=== PATIENT | male | born 1965 | race Caucasian/White ===

== ENCOUNTER 2017-08-29 06:45 | Day surgery (SDC) | payer MEDICARE ==
[2017-08-26 12:42] VITALS: BMI 48.0
[~2017-08-29 06:45] MED LIST: HEPARIN SODIUM,PORCINE 5,000 UNIT/ML 1 ML VIAL SQ ONE; LACTATED RINGERS 1,000 ML IV SCH; Pre Op ABX Message 1 EACH MISC MISCELLANE ONE
[2017-08-29] MEDS ORDERED: LIDOCAINE 1% 20 ML VIAL (10MG/ML) FOR IV START INTRADERMA ONE (07:15)
[2017-08-29 07:18] LABS: Glucose,Whole Blood 109 mg/dL (75-99)
--- NOTE | 2017-08-29 07:50 | P.GSHP ---
History of Present Illness H&P Date: 08/29/17 Chief Complaint: Left cervical lymphadenopathy Asst. 51-year-old male who presents today for excision of left posterior cervical lymph node. Patient states he has had this a large lymph node for several months. His recent CAT scan shows several large cervical lymph nodes. Past Medical History Past Medical History: Diabetes Mellitus, Pneumonia Additional Past Medical History / Comment(s): LT CERVICAL LYMPH NODE ENLARGED. History of Any Multi-Drug Resistant Organisms: None Reported Past Surgical History: Orthopedic Surgery Additional Past Surgical History / Comment(s): LUNG PROC TO CLEAN OUT INFECTION. BONE CHIP EXC RT KNEE. Past Anesthesia/Blood Transfusion Reactions: Motion Sickness Smoking Status: Never smoker - Past Family History Mother Family Medical History: Cancer Medications and Allergies Home Medications Medication Instructions Recorded Confirmed Type Amitriptyline HCl [Elavil] 10 mg PO HS 08/26/17 08/29/17 History Citalopram Hydrobromide 40 mg PO DAILY 08/26/17 08/29/17 History [Citalopram HBr] metFORMIN HCL [Glucophage Xr] 500 mg PO DAILY 08/26/17 08/29/17 History Allergies Allergy/AdvReac Type Severity Reaction Status Date / Time No Known Allergies Allergy Verified 08/26/17 12:20 Surgical - Exam Vital Signs Temp Pulse Resp BP Pulse Ox 99.1 F 85 18 124/77 95 08/29/17 07:03 08/29/17 07:03 08/29/17 07:03 08/29/17 07:03 08/29/17 07:03 - General well developed, no distress - Eyes PERRL - ENT normal pinna - Neck 2 cm posterior cervical lymph node. The lymph node is firm and nontender. no masses - Respiratory normal expansion - Cardiovascular Rhythm: regular - Abdomen Abdomen: soft, non tender Results - Labs Abnormal Lab Results - Last 24 Hours (Table) 08/29/17 Range/Units 07:11 POC Glucose (mg/dL) 109 H (75-99) mg/dL Assessment and Plan Assessment: Left cervical lymphadenopathy. We'll perform excisional biopsy. Patient aware the risk of possible nerve injury and paresthesias related to lymph node biopsy.
[2017-08-29] MEDS ORDERED: SUCCINYLCHOLINE CHLORIDE VIAL 200 MG/10 ML VIAL IV ONE (07:56)
[2017-08-29] MEDS ORDERED: KETOROLAC 30 MG/ML 1 ML VIAL ONE (07:56)
[2017-08-29] MEDS ORDERED: MIDAZOLAM 2 MG/2 ML VIAL ONE (07:56)
[2017-08-29] MEDS ORDERED: ONDANSETRON 4 MG/2 ML VIAL ONE (07:56)
[2017-08-29] MEDS ORDERED: fentaNYL (PF) 50 MCG/ML 2 ML AMP ONE (07:56)
[2017-08-29] MEDS ORDERED: PROPOFOL 10 MG/ML 20 ML VIAL IV ONE (07:56)
[2017-08-29] MEDS ORDERED: SODIUM CHLORIDE 0.9% 50 ML with ceFAZolin 2,000 MG IV ONE ×2 (08:23)
[2017-08-29] MEDS ORDERED: BUPIVACAINE (PF) 0.25% 30 ML VIAL SQ ONE (08:23)
[2017-08-29 08:57] VITALS: TEMP 97.9
[2017-08-29 09:58] VITALS: BP 109/66; PULSE 76; RESP 16
--- NOTE | 2017-09-05 12:48 | P.OP ---
Date of Procedure: 08/29/17 Preoperative Diagnosis: Left posterior cervical lymph node Postoperative Diagnosis: Posterior cervical lymph node Procedure(s) Performed: Excision of left posterior cervical lymph node Anesthesia: STACEY Surgeon: Javy Mcmahon Estimated Blood Loss (ml): 5 Pathology: other (Left posterior cervical lymph node) Condition: stable Disposition: PACU Description of Procedure: A shunt placed the operative table in the supine position. He received general anesthesia. His neck was prepped and draped usual fashion. The skin incision site was anesthetized 1% local Xylocaine. The skin was incised in the posterior cervical area. Using blunt and sharp dissection with cautery the lymph node was dissected. The Harmonic scissors were used to dissect lymph nodes well. The Bovie hemostasis. The scope specimens of pathology. The skin was closed interrupted 3-0 Monocryl suture. Dermabond was applied. Patient top she will was sent to recovery in stable condition.
== END 2017-08-29 10:09 | disposition home or self-care (01) ==
LOC: OR 06:45
PROVIDERS: ATTEND Surgery
DX: R59.0 Localized enlarged lymph nodes (principal); E11.9 Type 2 diabetes mellitus without complications; E66.01 Morbid (severe) obesity due to excess calories; Z68.42 Body mass index [BMI] 45.0-49.9, adult; M54.5 Low back pain; Z79.84 Long term (current) use of oral hypoglycemic drugs; Z79.899 Other long term (current) drug therapy
CPT/HCPCS: 88305; 88331; 38510; J2250; J0330; J1644; J2405; J3010; J1885; J0690; J2704

== ENCOUNTER 2017-09-10 06:55 | Day surgery (SDC) | payer MEDICARE ==
[2017-09-06 10:59] VITALS: BMI 47.3
[~2017-09-10 06:55] MED LIST changes: -HEPARIN SODIUM,PORCINE 5,000 UNIT/ML 1 ML VIAL SQ ONE; +LIDOCAINE 1% 20 ML VIAL (10MG/ML) FOR IV START INTRADERMA PRN; -Pre Op ABX Message 1 EACH MISC MISCELLANE ONE
[2017-09-10] MEDS ORDERED: LACTATED RINGERS 1,000 ML IV ONE (07:07)
[2017-09-10 07:15] VITALS: TEMP 98.6
[2017-09-10 07:18] LABS: Glucose,Whole Blood 122 mg/dL (75-99)
[2017-09-10] MEDS ORDERED: LIDOCAINE 1% INJ 10MG/ML (20 ML MDV) ONE (07:45)
[2017-09-10] MEDS ORDERED: PROPOFOL 10 MG/ML 20 ML VIAL IV ONE (07:45)
--- NOTE | 2017-09-10 07:57 | P.GSHP ---
History of Present Illness H&P Date: 09/10/17 Chief Complaint: Screening colonoscopy This is a 52-year-old male presents today for screening colonoscopy Past Medical History Past Medical History: Diabetes Mellitus, Pneumonia Additional Past Medical History / Comment(s): LT CERVICAL LYMPH NODE ENLARGED. fell 2007 and injured lower back, spinal stenosis History of Any Multi-Drug Resistant Organisms: None Reported Past Surgical History: Orthopedic Surgery Additional Past Surgical History / Comment(s): LUNG PROC TO CLEAN OUT INFECTION. BONE CHIP REMOVED FROM RT KNEE, LT CERVICAL LYMPH NODE removed Past Anesthesia/Blood Transfusion Reactions: Motion Sickness Past Psychological History: Depression Smoking Status: Never smoker Past Alcohol Use History: Rare Past Drug Use History: None Reported - Past Family History Mother Family Medical History: Cancer Medications and Allergies Home Medications Medication Instructions Recorded Confirmed Type Citalopram Hydrobromide 40 mg PO DAILY 08/26/17 09/10/17 History [Citalopram HBr] metFORMIN HCL [Glucophage Xr] 500 mg PO DAILY 08/26/17 09/10/17 History Gabapentin [Neurontin] 300 mg PO TID 09/06/17 09/10/17 History Allergies Allergy/AdvReac Type Severity Reaction Status Date / Time No Known Allergies Allergy Verified 09/10/17 07:22 Surgical - Exam Vital Signs Temp Pulse Resp BP Pulse Ox 98.6 F 85 14 175/70 95 09/10/17 07:14 09/10/17 07:14 09/10/17 07:14 09/10/17 07:14 09/10/17 07:14 - General well developed, no distress - Eyes PERRL - ENT normal pinna - Neck no masses - Respiratory normal expansion - Cardiovascular Rhythm: regular - Abdomen Abdomen: soft, non tender Results - Labs Abnormal Lab Results - Last 24 Hours (Table) 09/10/17 Range/Units 07:16 POC Glucose (mg/dL) 122 H (75-99) mg/dL Assessment and Plan Assessment: We will perform screening colonoscopy
--- NOTE | 2017-09-10 08:06 | P.OP ---
Date of Procedure: 09/10/17 Preoperative Diagnosis: Screening colonoscopy Postoperative Diagnosis: Normal colonoscopy Procedure(s) Performed: Colonoscopy Anesthesia: MAC Surgeon: Javy Mcmahon Pathology: none sent Condition: stable Disposition: PACU Description of Procedure: PROCEDURE: The patient was placed on the endoscopy table in the lateral position. Digital rectal examination was performed which revealed no abnormalities. The prostate was symmetrical without nodules. Flexible colonoscope was then placed in the patient's anus and passed throughout the entire colon. The ileocecal valve was visualized. The cecum, ascending, transverse, descending and sigmoid colon were normal. The rectum was normal as well. There were no masses, polyps or diverticula noted in the entire colon. SUMMARY OF FINDINGS: Normal colonoscopy.
[2017-09-10 08:28] VITALS: BP 119/74; PULSE 69; RESP 18
== END 2017-09-10 08:36 | disposition home or self-care (01) ==
LOC: ORWHC2ENDO 06:55
PROVIDERS: ATTEND Surgery
DX: Z12.11 Encounter for screening for malignant neoplasm of colon (principal); R19.4 Change in bowel habit; E11.9 Type 2 diabetes mellitus without complications; F32.9 Major depressive disorder, single episode, unspecified; Z79.84 Long term (current) use of oral hypoglycemic drugs; Z79.899 Other long term (current) drug therapy
CPT/HCPCS: J2001; J2704; G0121

== ENCOUNTER 2020-08-19 11:11 | Emergency (ER) | payer MEDICARE, OTHER ==
--- NOTE | 2020-08-19 11:58 | US ---
EXAMINATION TYPE: US venous doppler duplex LE RT DATE OF EXAM: 08/19/2020 11:21 AM COMPARISON: NONE CLINICAL HISTORY: calf pain, hx JJ vaccine. Rt calf pain SIDE PERFORMED: Right TECHNIQUE: The lower extremity deep venous system is examined utilizing real time linear array sonog tommy with graded compression, doppler sonography and color-flow sonography. VESSELS IMAGED: Common Femoral Vein Deep Femoral Vein Greater Saphenous Vein * Femoral Vein Popliteal Vein Small Saphenous Vein * Proximal Calf Veins (* superficial vessels) There is normal flow, compressibility, vascular waveforms. Right Leg: Negative for DVT IMPRESSION: No evident deep venous arthrosis at or above the right knee
--- NOTE | 2020-08-19 12:13 | ED ---
Extremity Problem HPI - General Chief complaint: Extremity Problem,Nontraumatic Stated complaint: R LEG CALF PAIN Time Seen by Provider: 08/19/20 11:20 Source: patient Mode of arrival: ambulatory Limitations: no limitations - History of Present Illness Initial comments: 54-year-old male presenting today for chief complaint of right calf pain. Patient denies any falls or injury but he states that he has had right calf pain for the past few days. Patient states it feels slightly swollen and he was concerned because it, Gazelle was concerned about a blood clot. Patient denies any history of blood clots denies any chest pain shortness of breath or pain deep inspiration since it does appear slightly red states is tender to touch. Patient denies fevers chills general malaise. Patient states is chronic fasciculations the right calf which he has been told secondary to spinal stenosis. Patient denies any worsening fasciculations. Patient appears nontoxic in no acute distress upon arrival. Patient states he may have felt a pop yesterday but is not sure. Patient can plantar and dorsiflex his foot without difficulty. He denies any falls or direct trauma. - Related Data Home Medications Medication Instructions Recorded Confirmed Citalopram Hydrobromide 40 mg PO DAILY 08/26/17 09/10/17 [Citalopram HBr] metFORMIN HCL [Glucophage Xr] 500 mg PO DAILY 08/26/17 09/10/17 Gabapentin [Neurontin] 300 mg PO TID 09/06/17 09/10/17 Previous Rx's Medication Instructions Recorded Cephalexin [Keflex] 500 mg PO Q6HR 7 Days #28 cap 08/19/20 Allergies Allergy/AdvReac Type Severity Reaction Status Date / Time No Known Allergies Allergy Verified 08/19/20 11:18 Review of Systems ROS Statement: Those systems with pertinent positive or pertinent negative responses have been documented in the HPI. ROS Other: All systems not noted in ROS Statement are negative. Past Medical History Past Medical History: Pneumonia Additional Past Medical History / Comment(s): LT CERVICAL LYMPH NODE ENLARGED. fell 2006 and injured lower back, spinal stenosis History of Any Multi-Drug Resistant Organisms: None Reported Past Surgical History: Back Surgery, Orthopedic Surgery Additional Past Surgical History / Comment(s): LUNG PROC TO CLEAN OUT INFECTION. BONE CHIP REMOVED FROM RT KNEE, LT CERVICAL LYMPH NODE removed Past Anesthesia/Blood Transfusion Reactions: Motion Sickness Past Psychological History: Depression Smoking Status: Never smoker Past Alcohol Use History: Rare Past Drug Use History: None Reported - Past Family History Mother Family Medical History: Cancer General Exam - General Exam Comments Initial Comments: General: The patient is awake and alert, in no distress Eye: +3 mm pupils are equal, round and reactive to light, extra-ocular movements are intact. No nystagmus. There is normal conjunctiva bilaterally. No signs of icterus. Ears, nose, mouth and throat: There are moist mucous membranes and no oral lesions. Neck: The neck is supple, there is no tenderness or JVD. Cardiovascular: There is a regular rate and rhythm. No murmur, rub or gallop is appreciated. Respiratory: Lungs are clear to auscultation, respirations are non-labored, breath sounds are equal. No wheezes, stridor, rales, or rhonchi. Gastrointestinal: Soft, non-distended, non-tender abdomen without masses or organomegaly noted. There is no rebound or guarding present. Musculoskeletal: Slight redness right calf, slightly warm, no obvious swelling. right calf fasciulations. achillles appears intact. no bruising. can weight bear and ambulate.Normal ROM. Strength 5/5. Sensation intact. Pulses equal bilaterally 2+. Neurological: A&O x 3. CN II-XII intact grossly, There are no obvious motor or sensory deficits. Coordination appears grossly intact. Speech is normal. Skin: Skin is warm and dry and no rashes or lesions are noted. Psychiatric: Cooperative, appropriate mood & affect, normal judgment. Limitations: no limitations Course Vital Signs 08/19/20 08/19/20 11:16 12:29 Temperature 99.1 F 98 F Pulse Rate 105 H 68 Respiratory 22 16 Rate Blood Pressure 168/88 161/78 O2 Sat by Pulse 94 L 98 Oximetry Medical Decision Making - Medical Decision Making 54yo male presenting for cc of right calf pain. possible developing cellulitis, but could be patients baseline difficult to tell. there is soem discoloration of the left leg. pt states hx of pop, but obvious deformities, achilles intact. pt can weight bear and ambulate .US (-) dvt. no hx injury. pt will be discharged on keflex and is to see pcp in 1-2 days. return for worsening symptoms. Disposition Clinical Impression: Right calf pain, Cellulitis Disposition: HOME SELF-CARE Condition: Good Instructions (If sedation given, give patient instructions): Cellulitis (ED) Additional Instructions: Please use medication as discussed. Please follow-up with family doctor in the next 2 days.Please return to emergency room if the symptoms increase or worsen or for any other concerns. Prescriptions: Cephalexin [Keflex] 500 mg PO Q6HR 7 Days #28 cap Is patient prescribed a controlled substance at d/c from ED?: No Referrals: Gio Rosenbaum MD [Primary Care Provider] - 1-2 days Time of Disposition: 12:12
[2020-08-19] MEDS ORDERED: ACET/COD 300 MG/30 MG STARTER PACK 6 TAB BTL PO STA (12:20)
[2020-08-19 12:29] VITALS: BP 161/78; PULSE 68; RESP 16; TEMP 98
== END 2020-08-19 12:29 | disposition home or self-care (01) ==
LOC: EC 11:11
DX: L03.115 Cellulitis of right lower limb (principal); F32.9 Major depressive disorder, single episode, unspecified; Z79.899 Other long term (current) drug therapy
CPT/HCPCS: 99284

== ENCOUNTER → 2021-09-08 | Outpatient (CLI) | payer MEDICARE ==
[2021-09-08 18:53] LABS: Basophils # (A) 0.04 X 10*3/uL (0.00-0.10); Basophils % (A) 0.2 %; Eosinophils # (A) 0.05 X 10*3/uL (0.04-0.35); Eosinophils % (A) 0.3 %; HCT 38.2 % (39.6-50.0); HGB 12.5 g/dL (13.0-17.0); Immature Grans, Automated 1.3 %; Lymphocytes # (A) 2.31 X 10*3/uL (0.90-5.00); Lymphocytes % (A) 13.2 %; MCHC 32.7 g/dL (32.0-37.0); MCV 85.7 fL (80.0-97.0); Mean Platelet Volume 10.9 fL (9.5-12.2); Monocytes # (A) 1.04 X 10*3/uL (0.20-1.00); Monocytes % (A) 5.9 %; NRBC Per 100 WBC 0 /100 WBCS (0.0-0.0); Neutrophils # (A) 13.85 X 10*3/uL (1.80-7.70); Neutrophils % (A) 79.1 %; Platelet Count 233 X 10*3/uL (140-440); RBC 4.46 X 10*6/uL (4.40-5.60); RDW 14.6 % (11.5-14.5); WBC 17.51 X 10*3/uL (4.50-10.00)
[2021-09-08 18:57] LABS: African American GFR (CKD) 96.6 (60.0-200.0); Anion Gap 11.9 mmol/L (10.00-18.00); BUN/Creat Ratio 21.68 Ratio (12.00-20.00); Blood Urea Nitrogen 21.9 mg/dL (9.0-27.0); Calcium 9.2 mg/dL (8.7-10.3); Carbon Dioxide 22.1 mmol/L (20.0-27.5); Non-African American GFR(CKD) 83.4 (60.0-200.0); Potassium 4.4 mmol/L (3.5-5.5)
== END | disposition home or self-care (01) ==
LOC: LABPAT 13:16
PROVIDERS: ATTEND Urology
DX: Z01.812 Encounter for preprocedural laboratory examination (principal); D41.01 Neoplasm of uncertain behavior of right kidney
CPT/HCPCS: 36415; 80048; 85025

== ENCOUNTER → 2021-09-12 | Outpatient (CLI) | payer MEDICARE ==
[2021-09-12 14:25] LABS: Basophils # (A) 0.07 X 10*3/uL (0.00-0.10); Basophils % (A) 0.7 %; Eosinophils # (A) 0.35 X 10*3/uL (0.04-0.35); Eosinophils % (A) 3.6 %; HCT 44.5 % (39.6-50.0); Immature Grans, Automated 1.9 %; Lymphocytes # (A) 1.82 X 10*3/uL (0.90-5.00); MCH 27.3 pg (27.0-32.0); MCHC 31.5 g/dL (32.0-37.0); MCV 86.9 fL (80.0-97.0); Mean Platelet Volume 10.2 fL (9.5-12.2); Monocytes # (A) 0.63 X 10*3/uL (0.20-1.00); Monocytes % (A) 6.6 %; NRBC Per 100 WBC 0 /100 WBCS (0.0-0.0); Neutrophils # (A) 6.55 X 10*3/uL (1.80-7.70); Neutrophils % (A) 68.2 %; Platelet Count 248 X 10*3/uL (140-440); RBC 5.12 X 10*6/uL (4.40-5.60); RDW 14.7 % (11.5-14.5)
[2021-09-12 14:44] LABS: African American GFR (CKD) 97.8 (60.0-200.0); Anion Gap 10.9 mmol/L (10.00-18.00); BUN/Creat Ratio 19.4 Ratio (12.00-20.00); Blood Urea Nitrogen 19.4 mg/dL (9.0-27.0); Calcium 9.4 mg/dL (8.7-10.3); Carbon Dioxide 28.1 mmol/L (20.0-27.5); Non-African American GFR(CKD) 84.4 (60.0-200.0); Potassium 4.6 mmol/L (3.5-5.5)
[2021-09-12 15:26] LABS: Appearance,Urine Clear (Clear); Bilirubin,Urine Negative (Negative); Blood,Urine Negative (Negative); Color,Urine Yellow (Yellow); Ketones,Urine Negative (Negative); Nitrite,Urine Negative (Negative); Specific Gravity,Urine 1.021 (1.001-1.030); Urobilinogen,Urine 0.2 (0.2,1.0)
[2021-09-12 15:33] LABS: Bacteria,Urine None Seen /HPF (None Seen)
== END | disposition home or self-care (01) ==
LOC: LABPAT 10:06
PROVIDERS: ATTEND Urology
DX: Z01.818 Encounter for other preprocedural examination (principal); I10 Essential (primary) hypertension; D41.01 Neoplasm of uncertain behavior of right kidney
CPT/HCPCS: 80048; 81001; 85025; 93005

== ENCOUNTER 2021-09-14 09:26 | Inpatient (IN) | payer MEDICARE ==
--- NOTE | 2021-09-11 16:00 | P.HPIHPCON ---
History of Present Illness H&P Date: 09/11/21 Chief Complaint: Right renal mass This is a 56-year-old male with history of 9.3 cm right-sided renal mass. Discussed with him given the size of the mass and central location is not amenable to nephron sparing surgery. Discussed the mass is highly concerning for renal cell carcinoma. Discussed with him the option of a robotic right radical nephrectomy. Discussed the risk which includes but not limited to bleeding, infection, injury to nearby organs which includes but not limited to the liver, bowel, blood vessels. Discussed with him the tumor is abutting the vena cava and there is a potential of caval injury, which can result in life- threatening bleeding. Discussed also with him risk from anesthesia which includes but not limited to heart attack, stroke, blood clots and even loss of life. Discussed even with surgical removal of the kidney there is potential of cancer recurrence. Discussed risk of incisional hernias. Discussed the potential also of progression to CKD and end-stage renal disease. Discussed the potential short-term and long-term need for hemodialysis. He understood all the risk and agreed to proceed with a robotic right radical nephrectomy l Consent for Procedure: I have explained the operation/procedure to the patient, including the risks, benefits, side effects, alternative therapies (including not receiving the proposed treatment or service), the likelihood of the patient achieving his/her goals, and potential recuperation problems for the procedure/sedation/analgesia, as well as any blood products, if indicated. I also explained to the patient the risks, benefits and side effects of the alternatives, as well as the risks related to not receiving the proposed procedure, care, treatment, or services. Past Medical History Past Medical History: Pneumonia Additional Past Medical History / Comment(s): LT CERVICAL LYMPH NODE ENLARGED. fell 2006 and injured lower back, spinal stenosis History of Any Multi-Drug Resistant Organisms: None Reported Past Surgical History: Back Surgery, Orthopedic Surgery Additional Past Surgical History / Comment(s): LUNG PROC TO CLEAN OUT INFECTION. BONE CHIP REMOVED FROM RT KNEE, LT CERVICAL LYMPH NODE removed Past Anesthesia/Blood Transfusion Reactions: Motion Sickness Past Psychological History: Depression Smoking Status: Never smoker Past Alcohol Use History: Rare Past Drug Use History: None Reported - Past Family History Mother Family Medical History: Cancer Medications and Allergies Home Medications Medication Instructions Recorded Confirmed Type Citalopram Hydrobromide 40 mg PO DAILY 08/26/17 09/10/17 History [Citalopram HBr] metFORMIN HCL [Glucophage Xr] 500 mg PO DAILY 08/26/17 09/10/17 History Gabapentin [Neurontin] 300 mg PO TID 09/06/17 09/10/17 History Cephalexin [Keflex] 500 mg PO Q6HR 7 Days #28 cap 08/19/20 Rx Allergies Allergy/AdvReac Type Severity Reaction Status Date / Time No Known Allergies Allergy Verified 08/19/20 11:18 Surgical - Exam - General no distress, no pain - Eyes normal ocular movement, no pale - ENT normal nares, normal mucosa - Respiratory normal expansion, normal respiratory effort - Abdomen Abdomen: soft, non tender Assessment and Plan Assessment: OR for right-sided robotic radical nephrectomy
[2021-09-12 09:40] VITALS: BMI 45.1
[~2021-09-14 09:26] MED LIST changes: +HEPARIN SODIUM,PORCINE/PF 5,000 UNIT/0.5 ML SYRINGE SQ PRN; -LACTATED RINGERS 1,000 ML IV SCH; -LIDOCAINE 1% 20 ML VIAL (10MG/ML) FOR IV START INTRADERMA PRN; +ceFAZolin 3 GM in SODIUM CHLORIDE 0.9% 100 ML IVPB PRN
[2021-09-14] MEDS ORDERED: ONDANSETRON 4 MG/2 ML VIAL ONE (10:08)
[2021-09-14] MEDS ORDERED: LACTATED RINGERS 1,000 ML IV ONE ×3 (10:20→14:55)
[2021-09-14 10:25] LABS: Glucose,Whole Blood 117 mg/dL (75-99)
[2021-09-14] MEDS ORDERED: ONDANSETRON 4 MG/2 ML VIAL IVP ONE (10:30)
[2021-09-14] MEDS ORDERED: DEXAMETHASONE SOD PHOSPHATE 4 MG/ML 1 ML VIAL IVP ONE (10:31)
[2021-09-14] MEDS ORDERED: fentaNYL (PF) 50 MCG/ML 2 ML AMP IV ONE (10:46)
[2021-09-14] MEDS ORDERED: MIDAZOLAM 2 MG/2 ML VIAL IV ONE (10:46)
[2021-09-14] MEDS ORDERED: HYDROmorphone (PF) 1 MG/ML ONE (12:13)
[2021-09-14] MEDS ORDERED: LIDOCAINE 2% INJ 20 MG/ML (2 ML VIAL) ONE (12:13)
[2021-09-14] MEDS ORDERED: PHENYLEPHRINE-0.9% NACL SYG 1,000 MCG/10 ML SYRINGE ONE (12:13)
[2021-09-14] MEDS ORDERED: MIDAZOLAM 2 MG/2 ML VIAL ONE (12:13)
[2021-09-14] MEDS ORDERED: fentaNYL (PF) 50 MCG/ML 2 ML AMP ONE (12:13)
[2021-09-14] MEDS ORDERED: VECURONIUM 10 MG VIAL IV ONE (12:13)
[2021-09-14] MEDS ORDERED: PROPOFOL 10 MG/ML 20 ML VIAL IV ONE (12:13)
[2021-09-14] MEDS ORDERED: ROCURONIUM 10 MG/ML (5 ML VIAL) IV ONE (12:13)
[2021-09-14] MEDS ORDERED: SUCCINYLCHOLINE CHLORIDE VIAL 200 MG/10 ML VIAL IV ONE (12:13)
[2021-09-14] MEDS ORDERED: NEOSTIGMINE 1 MG/ML 10 ML VIAL ONE (12:13)
[2021-09-14] MEDS ORDERED: GLYCOPYRROLATE 0.2 MG/ML 2 ML VIAL ONE (12:13)
[2021-09-14] MEDS ORDERED: BUPIVACAINE (PF) 0.25% 30 ML VIAL SQ ONE (13:12)
--- NOTE | 2021-09-14 13:36 | P.ANPRN ---
Procedure Note - Anesthesia - Nerve Block Performed Bilateral Erector Spinae Single Time Out Performed: Yes (1046) Date of Procedure: 09/14/21 Procedure Start Time: 10:47 Procedure Stop Time: 10:55 Location of Patient: PreOp Indication: Acute Post-Operative Pain, Requested by Surgeon Specifically requested for management of pain by : Terry Corbett Sedation Type: Sedate with meaningful contact maintained Preparation: Sterile Prep Position: Prone Catheter: None Needle Types: Pajunk Needle Gauge: 21 Ultrasound used to visualize needle placement: Yes Ultrasound used to observe medication spread: Yes Injectate: 0.5% Ropivacaine (see comment for volume) (20cc each side) Blood Aspirated: No Pain Paresthesia on Injection Noted: No Resistance on Injection: Normal Image Stored and Saved: Yes Events: Uneventful and Well Tolerated
[2021-09-14 15:14] LABS: Glucose,Whole Blood 166 mg/dL (75-99)
[2021-09-14] MEDS: HYDROmorphone 0.5 MG/0.5 ML SYRINGE IVP ONE ×2 (15:16→15:32)
[2021-09-14] MEDS: HYDROmorphone 1 MG/ML 1 ML SYRINGE IVP PRN ×2 (18:16→21:00)
[2021-09-14] MEDS: metFORMIN 500 MG TAB PO SCH ×2 (18:47→20:57)
[2021-09-14] MEDS: methocarbamoL 750 MG TAB PO SCH ×3 (18:47→21:06)
[2021-09-14] MEDS: HEPARIN SODIUM,PORCINE/PF 5,000 UNIT/0.5 ML SYRINGE SQ SCH ×2 (19:12→23:42)
[2021-09-14] MEDS: GABAPENTIN 300 MG CAP PO SCH (19:12)
--- NOTE | 2021-09-14 19:48 | CONS ---
CONSULTATION HISTORY OF PRESENT ILLNESS: Pain, right eye. After waking up from anesthesia, the patient has pain and discomfort, itching right eye. Patient denies any previous problem. The patient had general anesthesia for kidney surgery. Medical history reviewed. Eye examination: Vision 20/25 right eye, 20/20 left eye. Extraocular motility full. Lids normal. Right cornea shows a superficial corneal abrasion at 3 o'clock measuring 2 mm. Anterior chamber quiet. Conjunctiva shows mild injection medially. Retina deferred. Pupils were equal and reactive. ASSESSMENT: Right corneal abrasion. PLAN: one drop 4 times a day to the right eye for 4 days. If the patient is still suffering from pain or discomfort, please call me tomorrow. I will be happy to re- examine. Intraocular pressure was normal. MMODL / IJN: [id number] /
[2021-09-14] MEDS: SODIUM CHLORIDE 0.9% 1,000 ML IV SCH (19:58)
--- NOTE | 2021-09-14 20:44 | P.OP ---
Date of Procedure: 09/14/21 Preoperative Diagnosis: Right renal mass Postoperative Diagnosis: same Procedure(s) Performed: Robotic right radical nephrectomy Implants: none Anesthesia: STACEY Surgeon: Terry Corbett Estimated Blood Loss (ml): 50 Pathology: other (Right kidney and tumor) Condition: stable Disposition: PACU Indications for Procedure: This is a 56-year-old male with history of 9.3 cm right-sided renal mass. Discussed with him given the size of the mass and central location is not amenable to nephron sparing surgery. Discussed the mass is highly concerning for renal cell carcinoma. Discussed with him the option of a robotic right radical nephrectomy. Discussed the risk which includes but not limited to bleeding, infection, injury to nearby organs which includes but not limited to the liver, bowel, blood vessels. Discussed with him the tumor is abutting the vena cava and there is a potential of caval injury, which can result in life- threatening bleeding. Discussed also with him risk from anesthesia which includes but not limited to heart attack, stroke, blood clots and even loss of life. Discussed even with surgical removal of the kidney there is potential of cancer recurrence. Discussed risk of incisional hernias. Discussed the potential also of progression to CKD and end-stage renal disease. Discussed the potential short-term and long-term need for hemodialysis. He understood all the risk and agreed to proceed with a robotic right radical nephrectomy Operative Findings: Large right-sided renal tumor Description of Procedure: The patient was taken to the operating room . General anesthesia was induced. She was prepped and draped in sterile fashion, and was placed in modified flank position . All pressure points were padded. The abdominal insufflation was achieved with the Veress needle. A 8 mm camera port was placed. Robotic trocars and assistant sales center manager ports were placed under direct vision. a 5 mm liver retractor was placed. . The robot was docked into place. The colon was mobilized medially by incising along the white line of Toldt. Next the duodenum was kocherized. At this time the vena cava was exposed. Next the ureter was retracted anteriorly off the psoas muscle. Dissection proceeded cranially towards the renal hilum.. The upper pole attachments were dissected. Care was taken to safely mobilize the kidney free of all visceral structures.The renal vessels were dissected. At this point the renal vessels were exposed. Next the renal hilum was ligated using the vascular stapler. The adrenal gland was mobilized. Lateral and remaining kidney attachments were released. The ureter was dissected further distally. The ureter was ligated using the vascular stapler. The kidney was placed in an Endo Catch bag. Hemostatic agent were applied to the surgical field. The robot was then de-docked and the specimen was then removed by extending the assistant sales center manager port. Fascia was closed with one layer using loop PDS. Skin was closed with subcuticular sutures and dermabond. The patient was awoken from general anesthesia in stable condition. Please refer to the final pathology report for final diagnosis
[2021-09-14 20:56] LABS: Glucose,Whole Blood 130 mg/dL (75-99)
[2021-09-14] MEDS ORDERED: GABAPENTIN 300 MG CAP PO SCH (21:00)
[2021-09-14] MEDS ORDERED: CIPROFLOXACIN 0.3% OPHTH OINT 3.5 GM TUBE RIGHT EYE SCH (22:00)
[2021-09-14] MEDS: CIPROFLOXACIN 0.3% OPHTH SOLN 5 ML BTL RIGHT EYE SCH (23:42)
[2021-09-15 02:24] VITALS: RESP 16
[2021-09-15 06:59] LABS: Glucose,Whole Blood 111 mg/dL (75-99)
--- NOTE | 2021-09-15 07:35 | P.DS ---
Providers Date of admission: 09/14/21 09:26 Attending physician: Terry Corbett MD Consults: 09/14/21 17:03 Consult Physician Urgent Consulting Provider: Greg Bush Consult Reason/Comments: possible corneal abrasion Do you want consulting provider notified?: Already Contacted Primary care physician: Gio Rosenbaum MD Hospital Course: The patient is 56. He has a renal mass. He underwent a robotic-assisted radical nephrectomy on the right kidney yesterday. He has done well overnight. His abdomen was soft. The wound looks good. He is tolerating oral intake. His urine is clear. I'll discontinue his [place]. He'll ambulate. If his pain is under control be discharged home and follow-up in the office in one week. Postoperative instructions given. His condition is good. Patient Condition at Discharge: Good Plan - Discharge Summary Discharge Rx Participant: Yes New Discharge Prescriptions: New HYDROcodone/APAP 5-325MG [[place] 5-325] 1 tab PO Q4HR PRN #14 tab PRN Reason: Pain No Action metFORMIN HCL [Glucophage Xr] 1,000 mg PO TID-W/MEALS Gabapentin [Neurontin] 300 mg PO DIRECTED Ibuprofen [Motrin] 800 mg PO Q8H Atorvastatin [Lipitor] 20 mg PO QAM Lisinopril [Zestril] 10 mg PO QAM Gabapentin 600 mg PO HS Discharge Medication List metFORMIN HCL [Glucophage Xr] 1,000 mg PO TID-W/MEALS 08/26/17 [History] Gabapentin [Neurontin] 300 mg PO DIRECTED 09/06/17 [History] Atorvastatin [Lipitor] 20 mg PO QAM 09/12/21 [History] Gabapentin 600 mg PO HS 09/12/21 [History] Ibuprofen [Motrin] 800 mg PO Q8H 09/12/21 [History] Lisinopril [Zestril] 10 mg PO QAM 09/12/21 [History] HYDROcodone/APAP 5-325MG [[place] 5-325] 1 tab PO Q4HR PRN #14 tab 09/15/21 [Rx] Follow up Appointment(s)/Referral(s): Terry Corbett MD [STAFF PHYSICIAN] - 1 Week Activity/Diet/Wound Care/Special Instructions: YOU NEED TO MAKE AN APPOINTMENT TO SEE DR. STORM TO SET UP A SLEEP STUDY TEST Discharge Disposition: HOME SELF-CARE
[2021-09-15 07:56] VITALS: BP 116/74; PULSE 77; TEMP 98.1
[2021-09-15] MEDS: SODIUM CHLORIDE 0.9% 1,000 ML IV SCH (08:12)
[2021-09-15] MEDS: HEPARIN SODIUM,PORCINE/PF 5,000 UNIT/0.5 ML SYRINGE SQ SCH (08:21)
[2021-09-15] MEDS: methocarbamoL 750 MG TAB PO SCH ×2 (08:21→12:38)
[2021-09-15] MEDS: HYDROcodone/APAP 5-325MG 1 EACH TAB PO PRN ×2 (08:22→11:51)
[2021-09-15] MEDS: GABAPENTIN 300 MG CAP PO SCH (08:22)
[2021-09-15] MEDS: metFORMIN 500 MG TAB PO SCH ×2 (08:22→11:52)
[2021-09-15] MEDS: CIPROFLOXACIN 0.3% OPHTH SOLN 5 ML BTL RIGHT EYE SCH ×2 (08:23→12:38)
[2021-09-15] MEDS ORDERED: ATORVASTATIN 20 MG TAB PO SCH (09:00)
[2021-09-15] MEDS ORDERED: lisinopriL 10 MG TAB PO SCH (09:00)
[2021-09-15 11:17] LABS: African American GFR (CKD) 65 (>60 ml/min/1.73 sqM); Anion Gap 9 mmol/L; Blood Urea Nitrogen 21 mg/dL (9-20); Calcium 9.1 mg/dL (8.4-10.2); Carbon Dioxide 30 mmol/L (22-30); Chloride 98 mmol/L (98-107); Glucose 100 mg/dL (74-99); Non-African American GFR(CKD) 56 (>60 ml/min/1.73 sqM); Potassium 4.6 mmol/L (3.5-5.1); Sodium 137 mmol/L (137-145)
[2021-09-15 11:20] LABS: Glucose,Whole Blood 110 mg/dL (75-99)
== END 2021-09-15 14:26 | disposition home or self-care (01) | DRG 657 ==
LOC: 2ORMAIN 09:26 → 4SSUR 17:18
PROVIDERS: ADMIT Urology; ATTEND Urology
PROC: 0TT04ZZ Resection of Right Kidney, Percutaneous Endoscopic Approach (ICD-10-PCS; principal; 2021-09-14 11:00)
PROC: 8E0W8CZ Robotic Assisted Procedure of Trunk Region, Via Natural or Artificial Opening Endoscopic (ICD-10-PCS; principal; 2021-09-14 11:00)
DX: C64.1 Malignant neoplasm of right kidney, except renal pelvis (principal); Z68.41 Body mass index [BMI] 40.0-44.9, adult; S05.01XA Injury of conjunctiva and corneal abrasion without foreign body, right eye, initial encounter; Z28.310 Unvaccinated for COVID-19; E66.01 Morbid (severe) obesity due to excess calories; Z87.01 Personal history of pneumonia (recurrent); F32.A Depression, unspecified; M48.00 Spinal stenosis, site unspecified; Z79.84 Long term (current) use of oral hypoglycemic drugs; Z79.1 Long term (current) use of non-steroidal anti-inflammatories (NSAID); Z79.899 Other long term (current) drug therapy; Z91.81 History of falling; Z98.890 Other specified postprocedural states
CPT/HCPCS: 64999; 80048; 86850; 86900; 86901; 88307; 88341; 88342

== ENCOUNTER → 2022-05-25 | Outpatient (CLI) | payer MEDICARE ==
--- NOTE | 2022-05-25 15:24 | CT ---
EXAMINATION: CT CHEST, ABDOMEN WITH IV CONTRAST DATE OF EXAMINATION: 15/11/2022. COMPARISON: 09/06/2021. INDICATION: Auto for renal cell carcinoma. PROCEDURE: Axial CT of the chest, abdomen was performed following the intravenous administration of 80 ml Isovue 300. Abdomen images were performed without contrast Coronal and sagittal reformats were performed. CT dose lowering techniques were used, to include: automated exposure control, adjustment for patient size, and/or use of iterative reconstruction. FINDINGS: CHEST: Mediastinum and Jessi: There is no axillary, mediastinal or hilar lymphadenopathy. Pleural and Pericardial spaces: There are no pleural or pericardial effusions. Cardiovascular: The thoracic aorta is normal in size without evidence of aneurysm or dissection. Pulmonary Artery: There are no central pulmonary arterial filling defects. Lung Parenchyma and Airways: There is a 2 mm nodule in the right lower lobe on series 8 image 48 whic h is unchanged since the previous examination. Is a 4.5 mm nodule in the left lower lobe on series 8 image 41 which is unchanged. Lungs otherwise appear clear. No new nodules are seen. ABDOMEN: Liver and Biliary system: There is diffuse decreased attenuation of the liver which is compatible fa tty liver infiltration. Adrenal glands: Normal. Kidneys and ureters: There is a solitary left kidney. There is a nonobstructing 2 mm stone in the up per pole of the left kidney. The right kidney is surgically absent. There is no recurrent soft tissue masses seen within the right renal fossa.. Spleen: Normal. Pancreas: Normal. Gallbladder: Normal. Lymph nodes, Peritoneum and mesentery: There is no mesenteric or retroperitoneal lymphadenopathy. Gastrointestinal tract: There are no dilated loops of bowel or free intraperitoneal air. . The appe ndix is normal. Aorta/IVC: Aorta normal. No aortic aneurysm or dissection. IVC normal. Abdominal wall: Normal. BONES: There are no osseous destructive lesions.. ADDITIONAL SIGNIFICANT FINDINGS: None. IMPRESSION: 1. Right nephrectomy with no residual disease seen within the right renal fossa. 2. Tiny pulmonary nodules are unchanged. 3. No acute process otherwise seen within the chest or abdomen. 4. Hepatic steatosis.
== END | disposition home or self-care (01) ==
LOC: RADCTMAIN 12:57
PROVIDERS: ATTEND Urology
DX: C64.1 Malignant neoplasm of right kidney, except renal pelvis (principal); R91.8 Other nonspecific abnormal finding of lung field; K76.0 Fatty (change of) liver, not elsewhere classified; Z90.5 Acquired absence of kidney
CPT/HCPCS: 82565; 84520; 71260; 74150; 74160; 36415; Q9967

== ENCOUNTER → 2022-07-23 | Outpatient (CLI) | payer MEDICARE ==
[2022-07-23 18:17] LABS: HCT 45.5 % (39.6-50.0); HGB 14.5 g/dL (13.0-17.0); MCH 27.1 pg (27.0-32.0); MCHC 31.9 g/dL (32.0-37.0); Mean Platelet Volume 9.9 fL (9.5-12.2); NRBC Per 100 WBC 0 /100 WBCS (0.0-0.0); Platelet Count 219 X 10*3/uL (140-440); RBC 5.35 X 10*6/uL (4.40-5.60); RDW 15.2 % (11.5-14.5); WBC 8.94 X 10*3/uL (4.50-10.00)
[2022-07-23 19:05] LABS: ALT 39 U/L (10-49); AST 28 U/L (14-35); African American GFR (CKD) 59.9 (60.0-200.0); Albumin 4.6 g/dL (3.8-4.9); Albumin/Globulin Ratio 1.53 (1.60-3.17); Alkaline Phosphatase 119 U/L (41-126); Blood Urea Nitrogen 21.6 mg/dL (9.0-27.0); Calcium 10.8 mg/dL (8.7-10.3); Chloride 100 mmol/L (96-109); Chol/HDL Ratio 4.17 Ratio; Glucose 124 mg/dL (70-110); LDL Cholesterol,Calculated 94.8 mg/dL (0.0-131.0); Non-African American GFR(CKD) 51.7 (60.0-200.0); Sodium 140 mmol/L (135-145); Total Protein 7.6 g/dL (6.2-8.2)
== END | disposition home or self-care (01) ==
LOC: LABWHC1 10:44
PROVIDERS: ATTEND Physician Assistant Medical
DX: Z13.220 Encounter for screening for lipoid disorders (principal); E11.9 Type 2 diabetes mellitus without complications; E66.9 Obesity, unspecified; Z85.528 Personal history of other malignant neoplasm of kidney
CPT/HCPCS: 36415; 80053; 80061; 83036; 84443; 85027

== ENCOUNTER → 2022-12-06 | Outpatient (CLI) | payer MEDICARE ==
[2022-12-06 12:07] LABS: African American GFR (CKD) 68 (>60 ml/min/1.73 sqM); Blood Urea Nitrogen 29 mg/dL (9-20); Non-African American GFR(CKD) 59 (>60 ml/min/1.73 sqM)
--- NOTE | 2022-12-06 16:18 | CT ---
EXAMINATION TYPE: CT chest w con CT DLP: 4214.30 mGycm, Automated exposure control for dose reduction was used. DATE OF EXAM: 12/06/2022 3:10 PM COMPARISON: CT chest abdomen 05/25/2022 CLINICAL INDICATION:Male, 57 years old with history of C64.1 RIGHT KIDNEY CANCER; PHH, single kidney/ right kidney cancer- update on kidney removal TECHNIQUE: Multiple axial images were obtained through the chest following the administration of 80 c c of Isovue 300. . Coronal and sagittal reformats reviewed. FINDINGS: LUNGS/ PLEURA: No pleural effusion, pneumothorax, or focal consolidation. Stable left lower lobe 5 mm pulmonary nodule (series 3, image 43). Stable right lower lobe 2 mm pulmonary nodule (series 3, imag e 50). No new or enlarging pulmonary nodules. AIRWAY: Patent and unremarkable.. HEART: Size within normal limits. No pericardial effusion. Mild coronary artery calcifications. MEDIASTINUM: No evidence of adenopathy. VASCULATURE: No aortic aneurysm. MUSCULOSKELETAL: Mild disc degeneration changes are present throughout the thoracolumbar spine. No ac mary ann osseous and amounted. No aggressive osseous lesion. SOFT TISSUES/LYMPH NODES: Unremarkable. LOWER NECK: No significant findings. UPPER ABDOMEN: Please see CT abdomen from the same date for findings. IMPRESSION: Stable 2 pulmonary nodules measuring up to 5 mm. No new or enlarging pulmonary nodules. Otherwise no acute process.
--- NOTE | 2022-12-06 16:25 | CT ---
EXAMINATION TYPE: CT abdomen wo/w con CT DLP: 4214.30 mGycm, Automated exposure control for dose reduction was used. DATE OF EXAM: 12/06/2022 3:12 PM COMPARISON: CT chest abdomen 05/25/2022, CT abdomen 05/25/2022, CT abdomen 09/06/2021 CLINICAL INDICATION:Male, 57 years old with history of C64.1 RIGHT KIDNEY CANCER; single kidney/right kidney cancer update on kidney removal TECHNIQUE: Multiphase CT of the abdomen before and after the uneventful administration of 80 mL of I sovue-300 intravenously. Oral contrast was ministered. Coronal and sagittal reformats were performed. FINDINGS: LOWER CHEST: Please see dedicated CT chest for findings ABDOMEN LIVER: Diffusely hypoattenuating parenchyma. No focal lesion. GALLBLADDER AND BILE DUCTS: Unremarkable. PANCREAS: Unremarkable. SPLEEN: Unremarkable. ADRENAL GLANDS: Unremarkable. KIDNEYS AND URETERS: No evidence of hydronephrosis or nonobstructive left superior pole 4 mm calculus . Post surgical changes from right nephrectomy. No soft tissue within the nephrectomy bed to suggest local recurrence. Contrast is demonstrated within the left collecting system on the delayed phase. STOMACH AND BOWEL: Stomach and duodenum are unremarkable. Enteric contrast reaches the mid small geovani l. The appendix is within normal limits. No focal bowel wall thickening or surrounding inflammatory c hanges. No evidence of bowel obstruction. PERITONEUM: No evidence of pneumoperitoneum or free fluid. VASCULATURE: No evidence of aortic aneurysm. MUSCULOSKELETAL: No acute osseous abnormalities. Mild disc degeneration changes are present throughou t the thoracolumbar spine. No aggressive osseous lesion. LYMPH NODES: No gross evidence for lymphadenopathy. SOFT TISSUE/ABDOMINAL WALL: Small fat filled umbilical hernia. IMPRESSION: 1. Postsurgical changes from right nephrectomy with no evidence for recurrent/metastatic disease wit hin the visualized abdomen. 2. Nonobstructive left renal calculus. 3. Hepatic steatosis.
== END | disposition home or self-care (01) ==
LOC: RADCTMAIN 11:18
PROVIDERS: ATTEND Urology
DX: C64.1 Malignant neoplasm of right kidney, except renal pelvis (principal); K76.0 Fatty (change of) liver, not elsewhere classified; N20.0 Calculus of kidney; R91.8 Other nonspecific abnormal finding of lung field; Z90.5 Acquired absence of kidney
CPT/HCPCS: 82565; 84520; 71260; 74170; 36415; Q9967

== ENCOUNTER → 2023-08-09 | Outpatient (CLI) | payer MEDICARE ==
[2023-08-09 08:27] LABS: African American GFR (CKD) 62 (>60 ml/min/1.73 sqM); Blood Urea Nitrogen 23 mg/dL (9-20); Non-African American GFR(CKD) 53 (>60 ml/min/1.73 sqM)
--- NOTE | 2023-08-13 10:09 | CT ---
EXAMINATION TYPE: CT chest w con DATE OF EXAM: 08/09/2023 COMPARISON: 12/06/2022 HISTORY: RT kidney ca with removal. CT DLP: 3745.80 mGycm, Automated exposure control for dose reduction was used. CONTRAST: Performed injected with 80ml mL of Isovue 300. TECHNIQUE: Axial images were obtained at 5 mm thick sections. Reconstructed images are reviewed on [employer] computer in the coronal plane. FINDINGS: Portion of the thyroid visualized is normal. No suspicious lung nodules or focal infiltrates are present. No enlarged mediastinal or hilar adenopathy is evident. The ascending aorta diameter at the level o f the main pulmonary artery is 3.4 cm. The main pulmonary artery diameter at the bifurcation is 2.5 cm. On bone windows there is prior posterior right rib injury with a smooth cortical defect through the r ight posterior lateral rib, image 71. Slightly more medial some mild expansion may be present. This c ould be posttraumatic. An underlying lytic lesion is not clearly identified which would be within the differential. Findings appear stable from 2022. Limited CT sections are obtained through the upper abdomen. Abdomen is essentially unremarkable. Righ t kidney is not identified. IMPRESSION: 1. No acute abnormality to suggest metastatic right renal cancer
--- NOTE | 2023-08-14 11:02 | CT ---
EXAMINATION TYPE: CT abdomen wo/w con DATE OF EXAM: 08/09/2023 COMPARISON: 12/06/2022 HISTORY: RT kidney ca with removal. CT DLP: 3745.80 mGycm CONTRAST: CT scan of the abdomen is performed without and with Oral Contrast and with IV Contrast, patient inje cted with 80ml mL of Isovue 300. FINDINGS: LUNG BASES-: No visible nodule. No infiltrate. LIVER/GB: No calcified gallstones. No space occupying hepatic lesion. Biliary tree is of normal ca liber. PANCREAS: No inflammation. No distinct mass. SPLEEN: No splenic enlargement. No lesion seen. ADRENALS: No nodule. No thickening. KIDNEYS/BLADDER: Right-sided nephrectomy changes noted. No evidence for recurrent or residual mass. No hydronephrosis. Nonobstructing calculus midpole left kidney measuring 3 mm. No distinct renal mass . Urinary bladder grossly unremarkable. BOWEL: Visualized bowel loops are of normal caliber. GENITAL ORGANS: No gross abnormality. LYMPH NODES: No greater than 1cm abdominal or pelvic lymph nodes are appreciated. AORTA: No significant abnormality. OSSEOUS STRUCTURES: Scattered degenerative changes about the thoracolumbar spine and lumbar spine gre atest at L5-S1. OTHER: No significant additional abnormality is seen. IMPRESSION: 1. Right-sided nephrectomy changes without evidence for recurrent or residual mass. No evidence for m etastatic disease within the imaged field.
== END | disposition home or self-care (01) ==
LOC: RADCTMAIN 07:45
PROVIDERS: ATTEND Urology
DX: C64.1 Malignant neoplasm of right kidney, except renal pelvis (principal); Z90.5 Acquired absence of kidney
CPT/HCPCS: 82565; 84520; 71260; 74170; 36415; Q9967

== ENCOUNTER → 2024-05-19 | Outpatient (CLI) | payer MEDICARE ==
[2024-05-19 14:52] LABS: African American GFR (CKD) 73 (>60 ml/min/1.73 sqM); Blood Urea Nitrogen 20 mg/dL (9-20); Non-African American GFR(CKD) 63 (>60 ml/min/1.73 sqM)
--- NOTE | 2024-05-19 17:48 | CT ---
EXAMINATION TYPE: CT abdomen wo/w con DATE OF EXAM: 05/19/2024 3:46 PM COMPARISON: None. CLINICAL INDICATION: Male, 58 years old with history of C64.1 KIDNEY CANCER MALIGNANT NEOPLASM OF RIG HT KI, RT KIDNEY CA WITH REMOVAL TECHNIQUE: Axial images were obtained from above the diaphragm to the iliac crests in the axial plane at 5 mm thick sections. Reconstructed images are reviewed on the computer in the coronal plane. CONTRAST: 100 mL of Isovue 300. Study performed with Oral Contrast DLP: 3288.1 mGycm, Automated exposure control for dose reduction was used. FINDINGS: Limited CT sections are obtained the lung bases. The lung bases are clear. CT ABDOMEN: Liver: Normal Spleen: Normal Pancreas: Normal Adrenal glands: The adrenal glands are normal. Gallbladder: Normal Kidneys: No recurrent masses within the right renal bed are evident. There is been a prior right neph rectomy.. No hydronephrosis is present. No cysts are present. There is a 0.4 cm calcification with out obstruction in the upper pole left kidney. Aorta: Normal Inferior vena cava: Normal. CT Upper PELVIS : Loops of bowel within the abdomen and pelvis are normal. There are loops of bowel which are incom pletely distended or lack oral contrast limiting their evaluation. Appendix: Normal as visualized. IMPRESSION: 1. Nonobstructing calcification left upper renal pole. 2. No suspicious changes to suggest recurrent or metastatic right renal cancer [facility]om[facility], , 05/19/2024 5:45 PM
--- NOTE | 2024-05-19 17:50 | CT ---
EXAMINATION TYPE: CT chest w con DATE OF EXAM: 05/19/2024 3:46 PM COMPARISON: 08/09/2023 CLINICAL INDICATION: Male, 58 years old with history of C64.1 KIDNEY CANCER MALIGNANT NEOPLASM OF RIG HT KI, RT KIDNEY CA WITH REMOVAL TECHNIQUE: Axial images were obtained at 5 mm thick sections. Reconstructed images are reviewed on [employer] computer in the coronal plane. Contrast used:100 mL of Isovue 300 with IV Contrast, (none if empty) Oral contrast used: (none if empty) CT DLP: 611.80 mGycm, Automated exposure control for dose reduction was used. FINDINGS: Portion of the thyroid visualized is normal. No suspicious lung nodules or focal infiltrates are present. No enlarged mediastinal or hilar adenopathy is evident. The ascending aorta diameter at the level o f the main pulmonary artery is 3.5 cm. The main pulmonary artery diameter at the bifurcation is 2.8 cm. No suspicious osseous changes. Limited CT sections are obtained through the upper abdomen. Abdomen is essentially unremarkable. IMPRESSION: 1. No suspicious changes to suggest metastatic renal cancer [facility], , 05/19/2024 5:48 PM
== END | disposition home or self-care (01) ==
LOC: RADCTMAIN 14:15
PROVIDERS: ATTEND Urology
DX: C64.1 Malignant neoplasm of right kidney, except renal pelvis (principal); N28.89 Other specified disorders of kidney and ureter
CPT/HCPCS: 82565; 84520; 71260; 74170; 36415; Q9967